=== PATIENT | female | born 1955 | race Asian ===

== ENCOUNTER 2021-10-13 09:56 | Emergency (ER) | payer OTHER ==
[~2021-10-13] VITALS: Ht 154.9 cm; Wt 76.2 kg
[2021-10-13 10:02] VITALS: BP 171/77
--- NOTE | 2021-10-13 10:18 | NUR ---
DR. MCKENNA BEDSIDE EVALUATING PT
--- NOTE | 2021-10-13 10:23 | NUR ---
66 Y/O FEMALE C/O HAVING A HIGH BLOOD PRESSURE READING AT [facility] PRIOR TO ARRIVAL. DENIES FEVER/CHILLS. DENIES N/V. BP 171/77. PT DENIES ANY AGUIRRE, BLURRED VISION. PT A&OX4 PMH: HTN, DM, HLD NKA
--- NOTE | 2021-10-13 10:34 | NUR ---
Patient discharged with v/s stable. Written and verbal after care instructions given and explained. Patient verbalized understanding. Ambulatory with steady gait. All questions addressed prior to discharge. Advised to follow up with PMD.
== END 2021-10-13 10:34 | disposition home or self-care (01) ==
LOC: MED 09:56
DX: I10 Essential (primary) hypertension (principal); Z85.9 Personal history of malignant neoplasm, unspecified; Z90.710 Acquired absence of both cervix and uterus; Z98.890 Other specified postprocedural states
CPT/HCPCS: 99281